=== PATIENT | female | born 1940 | race Caucasian/White ===

== ENCOUNTER → 2017-12-27 | Outpatient (CLI) | payer OTHER, MEDICARE ==
[~2017-12-27] MED LIST: ALPRAZOLAM 0.0.25 M1 PO; ASA5UEC PO; ATENOLOL 100MG100 MG PO; AVAPRO 150 MG150 M1 PO; CALCIUM 500 +1 EAC5 PO; CENTRUM SILVER1 EAC5 PO; CENTRUM TABLET1 TAB PO; CHLORTHALIDONE25 MG PO; COLACE 100 MG100 MG PO; COUMADIN 5 MG TA5 M1 PO; CRESTOR5 MG PO; DILTIAZEM 24HR180 M2 PO; DILTIAZEM ER120 M1 PO; ELIQUIS5 MG PO; FISH OIL 1,0001 EAC5 PO; FLECAINIDE ACE100 MG PO; FLECAINIDE ACET50 M1 PO; IBUPROFEN 600600 M1 PO; KEFLEX250 MG PO; KLOR-CON 1010 MEQ PO; LISINOPRIL10 MG PO; LIVALO2 MG PO; LOVENOX SQ; METOPROLOL SUC100 MG PO; NORCO 5-325 TA1 EACH PO; POTASSIUM20 PO; SIMVASTATIN40 MG PO; TAGAMETTAB PO; TOPROL XL50 MG PO; TRIAMTERENE-HC1 EAC1 PO; VITAMIN D1000 UNI1 PO; XANAX 0.25 MG0.25 MG PO
--- NOTE | ~2017-12-27 | 2DMMODE ---
[facility] [employer] [place] [address] 2 D/M-MODE ECHOCARDIOGRAM Name: AYLIN RESENDIZ Room #: REG [facility]#: [id number] Admission: 12/27/17 Attend Phys: Tayo Betancourt Discharge: Date of : 42 Date of Service: 12/27/17 1126 Report #: [id number] THIS REPORT FOR: //name// APPROVED REPORT Study performed: 12/27/2017 09:11:10 EXAM: Comprehensive 2D, Doppler, and color-flow Echocardiogram Patient Location: Out-Patient Status: routine BSA: 1.85 HR: 79 bpm BP: 121/66 mmHg Other Information Study Quality: Adequate Indications Afib, pacemaker. 2D Dimensions RVDd: 37.07 mm LVEF(%): 52.30 (>50%) IVSd: 11.92 (7-11mm) LVOT Diam: 19.73 (18-24mm) LVDd: 40.10 mm PWd: 13.04 (7-11mm) Ascending Ao: 28.87 (22-36mm) LVDs: 29.50 (25-40mm) Aortic Root: 31.96 mm Lipscomb's LVEF: 52.30 % Volumes Left Atrial Volume (Systole) Single Plane 4CH: 55.96 mL Single Plane 2CH: 68.37 mL LA ESV Index: 35.00 mL/m2 Aortic Valve AoV Peak Alon.: 2.59 m/s AO Peak Gr.: 26.86 mmHg LVOT Max P.69 mmHg AO Mean Gr.: 16.07 mmHg AO V2 Mean: 1.95 m/s LVOT Max V: 1.08 m/s AO V2 VTI: 56.03 cm MARCELINO Vmax: 1.28 cm2 Mitral Valve E/A Ratio: 1.2 [facility] [employer] [place] [address] 2 D/M-MODE ECHOCARDIOGRAM Name: AYLIN RESENDIZ Room #: [facility] Gerard#: [id number] Admission: 12/27/17 Attend Phys: Tayo Betancourt Discharge: Date of : 42 Date of Service: 12/27/17 1126 Report #: [id number] MV Decel. Time: 219.47 ms MV E Max Alon.: 0.96 m/s MV A Alon.: 0.80 m/s MV PHT: 63.65 ms IVRT: 69.20 ms Pulmonary Valve PV Peak Alon.: 0.78 m/s PV Peak Gr.: 2.46 mmHg Tricuspid Valve TR Peak Alon.: 2.53 m/s RAP Estimate: 5.00 mmHg TR Peak Gr.: 25.55 mmHg PA Pressure: 31.00 mmHg Left Ventricle The left ventricle is normal size. Mild concentric left ventricular hypertrophy. Left ventricular systolic function is normal. LVEF is 55%. Right Ventricle The right ventricle is normal size. The right ventricular systolic function is normal. Pacemaker lead is present in the right ventricle. Atria Left atrium is mildly dilated. The right atrium size is normal. Aortic Valve Aortic valve is moderately calcified. Trace aortic regurgitation. There is mild to moderate valvular aortic stenosis. Calculated aortic valve area is 1.3 cm2 with maximum pressure gradient of 27 mmHg and mean pressure gradient of 16 mmHg. Mitral Valve Mitral valve leaflets are mildly thickened. Mild mitral annular calcification. Mild mitral regurgitation. No evidence of mitral valve stenosis. Tricuspid Valve The tricuspid valve is normal in structure. Mild to moderate tricuspid regurgitation. Estimated PAP is 30-35mmHg. Pulmonic Valve Pulmonic valve is not well visualized. Trace pulmonic regurgitation. [address] [address] 2 D/M-MODE ECHOCARDIOGRAM Name: AYLIN RESENDIZ Room #: REG Gerard#: [id number] Admission: 12/27/17 [facility]end Phys: [facility]: Date of : 42 Date of Service: 12/27/17 1126 Report #: [id number] Great Vessels The aortic root is normal in size. The ascending aorta is normal in size. IVC is normal in size and collapses >50% with inspiration. Pericardium There is no pericardial effusion. <Conclusion> The left ventricle is normal size. Mild concentric left ventricular hypertrophy. LVEF is 55%. The right ventricle is normal size. The right ventricular systolic function is normal. Left atrium is mildly dilated. Aortic valve is moderately calcified. Trace aortic regurgitation. There is mild to moderate valvular aortic stenosis. Calculated aortic valve area is 1.3 cm2 with maximum pressure gradient of 27 mmHg and mean pressure gradient of 16 mmHg. Mitral valve leaflets are mildly thickened. Mild mitral annular calcification. Mild mitral regurgitation. Mild to moderate tricuspid regurgitation. Estimated PAP is 30-35mmHg. The aortic root is normal in size. There is no pericardial effusion. <ELECTRONICALLY SIGNED> By: Arya Nielsen MD, FACC 12/27/17 1126 1126 1126 Arya Nielsen MD, FACC /INF
== END ==
LOC: CV 08:39
DX: I48.91 Unspecified atrial fibrillation (principal); Z95.0 Presence of cardiac pacemaker; I08.1 Rheumatic disorders of both mitral and tricuspid valves; I70.8 Atherosclerosis of other arteries; I51.7 Cardiomegaly; I35.0 Nonrheumatic aortic (valve) stenosis

== ENCOUNTER → 2019-10-16 | Outpatient (CLI) | payer OTHER, MEDICARE | LOC: SJCVC 11:05 | DX: Z45.018 Encounter for adjustment and management of other part of cardiac pacemaker (principal); I44.0 Atrioventricular block, first degree; R00.0 Tachycardia, unspecified; I48.0 Paroxysmal atrial fibrillation; I49.5 Sick sinus syndrome; I10 Essential (primary) hypertension; Z82.49 Family history of ischemic heart disease and other diseases of the circulatory system; Z79.899 Other long term (current) drug therapy ==

== ENCOUNTER → 2020-01-08 | Outpatient (CLI) | payer OTHER, MEDICARE | LOC: SJCVCIMAG 11-22 10:48 | DX: R94.31 Abnormal electrocardiogram [ECG] [EKG] (principal); I08.8 Other rheumatic multiple valve diseases; I44.0 Atrioventricular block, first degree; I48.0 Paroxysmal atrial fibrillation; I11.9 Hypertensive heart disease without heart failure; R06.09 Other forms of dyspnea; I49.5 Sick sinus syndrome; Z95.0 Presence of cardiac pacemaker ==

== ENCOUNTER → 2020-01-14 | Outpatient (CLI) | payer OTHER, MEDICARE | LOC: SJCVCIMAG 07:38 | DX: I48.91 Unspecified atrial fibrillation (principal); R06.09 Other forms of dyspnea; Z95.0 Presence of cardiac pacemaker; Z79.899 Other long term (current) drug therapy ==